=== PATIENT | female | born 1995 | race Two or more races ===

== ENCOUNTER 2019-02-04 10:58 | Inpatient (IN) | payer OTHER ==
[~2019-02-04] VITALS: Ht 157.5 cm; Wt 78.0 kg
[2019-03-14] MEDS ORDERED: PRENATAL TABLE1 EAC1 PO (06:29)
== END 2019-03-16 14:14 | disposition home or self-care (01) | DRG 807 ==
LOC: EDUNIT# 02-18 15:00 → LDR 03-14 06:28 → OB/GYN 03-14 14:38
PROVIDERS: ADMIT Obstetrics & Gynecology
PROC: 10E0XZZ Delivery of Products of Conception, External Approach (ICD-10-PCS; principal; 2019-03-14)
PROC: 10907ZC Drainage of Amniotic Fluid, Therapeutic from Products of Conception, Via Natural or Artificial Opening (ICD-10-PCS; 2019-03-14)
PROC: 3E033VJ Introduction of Other Hormone into Peripheral Vein, Percutaneous Approach (ICD-10-PCS; 2019-03-14)
PROC: 4A1HXCZ Monitoring of Products of Conception, Cardiac Rate, External Approach (ICD-10-PCS; 2019-03-14)
DX: O80 Encounter for full-term uncomplicated delivery (principal); Z37.0 Single live birth; Z3A.39 39 weeks gestation of pregnancy